=== PATIENT | female | born 1990 | race Two or more races ===

== ENCOUNTER 2024-10-25 19:13 | Emergency (ER) | payer OTHER ==
[~2024-10-25] VITALS: Ht 167.6 cm; Wt 55.3 kg
[2024-10-25] MEDS ORDERED: DEXAMETHASONE SODIUM PHOSPHATE 4 MG/ML VIAL IM STA (22:04)
[2024-10-25] MEDS ORDERED: DEXAMETHASONE SODIUM PHOSPHATE 4 MG/ML VIAL ONE (22:10)
[2024-10-26] MEDS ORDERED: MEDROLPACK PO (01:56)
== END 2024-10-26 02:12 ==
LOC: ER 19:13
DX: O26.892 Other specified pregnancy related conditions, second trimester (principal); M54.51 Vertebrogenic low back pain; Z3A.19 19 weeks gestation of pregnancy; Z88.2 Allergy status to sulfonamides